=== PATIENT | male | born 1960 | race Caucasian/White ===

== ENCOUNTER 2021-10-22 18:42 | Observation (INO) | payer MEDICARE, OTHER ==
[2021-10-22 19:19] LABS: BASOPHILS % (AUTO) 0.6 %; EOSINOPHILS # (AUTO) 0.3 10^3/uL (0.0-0.7); HCT - HEMATOCRIT 44.7 % (42.0-52.0); HGB - HEMOGLOBIN 15.2 g/dL (14.0-18.0); LYMPHOCYTES # (AUTO) 1.8 10^3/uL (1.5-3.5); LYMPHOCYTES % (AUTO) 27.5 %; MEAN CORPUSCULAR HEMOGLOBIN 30.7 pg (27.0-31.0); MEAN CORPUSCULAR VOLUME 90.3 fL (80.0-94.0); MEAN PLATELET VOLUME 9.3 fL (7.4-11.4); MONOCYTES # (AUTO) 0.4 10^3/uL (0.0-1.0); MONOCYTES % (AUTO) 5.8 %; NEUTROPHILS # (AUTO) 4.1 10^3/uL (1.5-6.6); NEUTROPHILS % (AUTO) 61.9 %; PLT - PLATELET COUNT 190 10^3/uL (130-450); RED BLOOD COUNT 4.95 10^6/uL (4.70-6.10); RED CELL DISTRIBUTION WIDTH 13.1 % (12.0-15.0); WHITE BLOOD COUNT 6.6 x10^3/uL (4.8-10.8)
[2021-10-22 19:28] LABS: ALBUMIN 4.3 g/dL (3.2-5.5); ALBUMIN/GLOBULIN RATIO 1.4 (1.0-2.2); BILIRUBIN,TOTAL 0.4 mg/dL (0.2-1.0); CALCIUM 8.9 mg/dL (8.5-10.3); CREATININE 0.9 mg/dL (0.6-1.2); POTASSIUM 4.1 mmol/L (3.5-5.0); TOTAL PROTEIN 7.3 g/dL (6.7-8.2)
--- NOTE | 2021-10-22 19:59 | XRAY Report ---
PROCEDURE: Chest 1 View X-Ray INDICATIONS: Chest Pain TECHNIQUE: One view of the chest was acquired. COMPARISON: None. FINDINGS: Surgical changes and devices: None. Lungs and pleura: No pleural effusions or pneumothorax. Lungs are clear. Mediastinum: Mediastinal contours appear normal. Heart size is normal. Bones and chest wall: No suspicious bony lesions. Overlying soft tissues appear unremarkable. IMPRESSION: Chest without acute cardiopulmonary abnormalities. No focal airspace disease. Reviewed by: Lizandro Bloom MD on 10/22/2021 6:58 PM [facility] Approved by: Lizandro Bloom MD on 10/22/2021 6:58 PM [facility] Station ID: [id number]
--- NOTE | 2021-10-22 22:03 | ED Physician Documentation ---
History of Present Illness - Stated complaint Stated Complaint: DIZZY,CONFUSED - Chief complaint Chief Complaint: Neuro - History obtained from History obtained from: Patient - Additonal information Additional information: 61-year-old man with past medical history of Ekqfiap-Lyjdx-Twxdi, restless leg syndrome on pramipexole, no other medications, presents with a 5 to 10-minute event 2 days ago occurring at work of lightheadedness and confusion followed by another episode at home. (See MDM for collateral information from ). Patient states that he had shortness of breath, speaking gibberish, and could not think, experiencing palpitations. He now feels completely better. He tried to get into see his primary doctor but was told he can get an appointment for 6 to 8 weeks and was told to come to the emergency department. Of note, patient has had an orthostatic episode a couple years ago when he stood suddenly from bed and hit his head but had a negative work-up at that time. denies chest pain, soa, fever, fnd at present. nonsmoker. denies FH MN, stroke. Review of Systems Ten Systems: 10 systems reviewed and negative Constitutional: denies: Fever, Chills Cardiac: reports: Palpitations. denies: Chest pain / pressure Neurologic: reports: Confused, Other (dizziness) PD PAST MEDICAL HISTORY - Allergies Allergies/Adverse Reactions: Allergies Allergy/AdvReac Type Severity Reaction Status Date / Time No Known Drug Allergies Allergy Verified 10/22/21 19:00 PD ED PE NORMAL - Vitals Vital signs reviewed: Yes - General General: Alert and oriented X 3, No acute distress, Well developed/nourished - HEENT HEENT: Atraumatic, PERRL, EOMI - Neck Neck: Supple, no meningeal sign - Cardiac Cardiac: RRR - Respiratory Respiratory: No respiratory distress, Clear bilaterally - Abdomen Abdomen: Non tender, Non distended - Back Back: No CVA TTP - Derm Derm: Normal color, Warm and dry - Extremities Extremities: No deformity - Neuro Neuro: Alert and oriented X 3, 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, No motor deficit, No sensory deficit, Normal speech Eye Opening: Spontaneous Motor: Obeys Commands Verbal: Oriented GCS Score: 15 - Psych Psych: Normal mood, Normal affect Results - Vitals Vitals: Vital Signs - 24 hr 10/22/21 10/22/21 10/22/21 18:52 21:00 22:14 Temperature 36.3 C L Heart Rate 62 56 L Heart Rate [ 56 L Sitting] Heart Rate [ 65 Standing] Heart Rate [ 50 L Supine] Respiratory 18 18 Rate Blood Pressure 140/79 H 124/83 H Blood Pressure 118/84 H [Sitting] Blood Pressure 120/92 H [Standing] Blood Pressure 129/75 [Supine] O2 Saturation 98 97 Oxygen O2 Source Room air - Labs Labs: Laboratory Tests 10/22/21 10/22/21 10/22/21 19:11 19:11 19:11 WBC 6.6 RBC 4.95 Hgb 15.2 Hct 44.7 MCV 90.3 MCH 30.7 MCHC 34.0 RDW 13.1 Plt Count 190 MPV 9.3 Neut # (Auto) 4.1 Lymph # (Auto) 1.8 [place] # (Auto) 0.4 Eos # (Auto) 0.3 Baso # (Auto) 0.0 Absolute Nucleated RBC 0.00 Nucleated RBC % 0.0 Sodium 137 Potassium 4.1 Chloride 104 Carbon Dioxide 25 Anion Gap 8.0 BUN 19 Creatinine 0.9 Estimated GFR (MDRD) 86 L Glucose 111 H Calcium 8.9 Total Bilirubin 0.4 AST 21 ALT 22 Alkaline Phosphatase 72 Troponin I High Sens 5.6 Total Protein 7.3 Albumin 4.3 Globulin 3.0 Albumin/Globulin Ratio 1.4 Lipase 32 10/22/21 21:47 WBC RBC Hgb Hct MCV MCH MCHC RDW Plt Count MPV Neut # (Auto) Lymph # (Auto) [place] # (Auto) Eos # (Auto) Baso # (Auto) Absolute Nucleated RBC Nucleated RBC % Sodium Potassium Chloride Carbon Dioxide Anion Gap BUN Creatinine Estimated GFR (MDRD) Glucose Calcium Total Bilirubin AST ALT Alkaline Phosphatase Troponin I High Sens 4.5 Total Protein Albumin Globulin Albumin/Globulin Ratio Lipase PD MEDICAL DECISION MAKING - ED course ED course: d/w of patient - episode happened the night before last and she called his clinic's primary provider and they couldn't get him in for 6-8 weeks and said to come to the ED. He came home from work and was sitting on the couch with her and he turned to talk to her and was speaking in gibberish with neologisms (made up words) and was making "mixed up word salad". He then stopped and said "what did you say?" about four times. Episode lasted about 5-10 minutes. He also told her he had an episode at work where he got lightheaded and had trouble catching his breath. A couple years ago he did pass out when he stood suddenly from bed but had a negative workup. CTA head/neck negative. patient to be placed in observation for MRI and then outpatient neuro f/u and echo. Departure - Departure Disposition: ED Place in Observation Clinical Impression: Dizziness, Confusion, Aphasia Condition: Stable
[2021-10-22] MEDS ORDERED: SODIUM CHLORIDE 0.9% 1,000 ML IV STA (22:11)
[2021-10-22] MEDS ORDERED: IOVERSOL 320 100 ML VIAL IVP ONE ×2 (22:19→23:23)
--- NOTE | 2021-10-22 23:41 | CT Report ---
PROCEDURE: ANGIO HEAD W/WO INDICATIONS: confusion, "word salad' 2 nights ago CONTRAST: IV CONTRAST: Optiray 320 ml: 80 PO CONTRAST: *NO PO CONTRAST TECHNIQUE: Precontrast 4.5 mm thick angled axial sections acquired from the foramen magnum to the vertex. Afte r the administration of intravenous contrast, 1 mm thick sections acquired through the [place] of [place] is. Postcontrast 4.5 mm thick sections then re-acquired from the foramen magnum to the vertex. 3-di mensional fzydlox-uhhofjxwq-jvobogtuhu (MIP) and/or volume rendering reformats were acquired of the c entral intracranial vasculature. For radiation dose reduction, the following was used: automated ex posure control, adjustment of mA and/or kV according to patient size. COMPARISON: None FINDINGS: Image quality: Excellent. Anterior circulation: Mild calcific stenosis of the cavernous segments of the bilateral internal car otid arteries. Intracranial internal carotid arteries are otherwise normal in size and flow. The tayo w within the paired anterior cerebral arteries is normal and symmetric. The flow within the middle c erebral arteries is normal and symmetric. The anterior communicating artery is seen. No aneurysms a re seen. Posterior circulation: Visualized portions of the vertebral arteries demonstrate normal caliber, and join to form a normal appearing basilar artery. Flow within the posterior cerebral arteries is norm al and symmetric. No aneurysms are seen. CSF spaces: Ventricles are normal in size and shape. Basal cisterns are patent. No extra-axial flu id collections. Brain: No midline shift. No intracranial bleeds or masses. Alvarez-white matter interface appears int act. Skull and face: Calvarium and facial bones appear intact, without suspicious lesions. Sinuses: Visualized sinuses and mastoids are clear. IMPRESSION: No acute process involving the arterial structures of the head. Reviewed by: Irina Park MD on 10/22/2021 11:41 PM PST Approved by: Irina Park MD on 10/22/2021 11:41 PM PST Station ID: [id number]
--- NOTE | 2021-10-22 23:43 | CT Report ---
PROCEDURE: ANGIO NECK W INDICATIONS: confusion, "word salad" 2 nights ago CONTRAST: IV CONTRAST: Optiray 320 ml: 80 PO CONTRAST: *NO PO CONTRAST TECHNIQUE: After the administration of intravenous contrast, 1.5 mm axial sections acquired from the aortic arch to the [place] of [place]. Coronal 3-D maximum intensity projection (MIP) and/or volume rendering ref ormats were then performed. For radiation dose reduction, the following was used: automated exposur e control, adjustment of mA and/or kV according to patient size. COMPARISON: None. FINDINGS: Image quality: Excellent. Carotid system: The great vessels demonstrate a conventional anatomy as they arise from the aortic a rch. The origins of the common carotid arteries appear patent. The common carotid arteries demonstr ate normal calibers and courses. The bifurcation regions appear normal bilaterally. The internal ca rotid arteries demonstrate normal caliber and course. Posterior circulation: The right vertebral artery origin is patent. Left proximal vertebral arteries not well seen secondary to venous overlap. The more superior portions of the vertebral arteries demo nstrate normal course and caliber. They join to form a normal appearing basilar artery. Soft tissues: Visualized neck soft tissues demonstrate no suspicious abnormalities. The thyroid is normal in size and there are no incidental findings. Bones: No suspicious bony lesions. Visualized cervical spine appears normally aligned. IMPRESSION: 1. Suboptimal visualization of the proximal left vertebral artery secondary to venous overlap. 2. Otherwise negative CT angiography of the neck. The estimate of stenosis included in the report of the imaging study was calculated using the NASCET method CLINICAL RECOMMENDATION STATEMENTS: In patients <35 years with an ITN detected on CT, MRI, or extrathyroidal ultrasound, the Committee re commends further evaluation with dedicated thyroid ultrasound if the nodule is "e1 cm and has no susp icious imaging features, and if the patient has normal life expectancy. In patients "e35 years with an ITN detected on CT, MRI, or extrathyroidal ultrasound, the Committee r ecommends further evaluation with dedicated thyroid ultrasound if the nodule is "e1.5 cm and has no s uspicious imaging features, and if the patient has normal life expectancy. (ACR, 2014) Reviewed by: Irina Park MD on 10/22/2021 11:43 PM PST Approved by: Irina Park MD on 10/22/2021 11:43 PM PST Station ID: [id number]
[2021-10-22] MEDS ORDERED: ONDANSETRON ODT 4 MG TABLET TL PRN (23:55)
[2021-10-22] MEDS ORDERED: SODIUM CHLORIDE FLUSH 0.9% 10 ML SYRINGE IVP PRN (23:55)
[2021-10-22] MEDS ORDERED: ONDANSETRON 4 MG/2 ML VIAL IVP PRN (23:55)
[2021-10-22] MEDS ORDERED: ACETAMINOPHEN 325 MG TABLET PO PRN (23:55)
--- NOTE | 2021-10-22 23:55 | HISTORY & PHYSICAL EXAMINATION ---
Chief Complaint - Chief Complaint Chief Complaint: Disorientation and difficulty speaking History of Present Illness - Admitted From Admitted From:: Home - History Obtained From Records Reviewed: [facility] History obtained from: Patient, GISSEL Goldsmith, - History of Present Illness HPI Comment/Other: This is a 61-year-old male with a past medical history significant for restless leg syndrome who presents today due to an episode about 2 days ago where he had confusion and difficulty speaking. He states he has had about 20 of these episodes over the past 3 to 4 years. He will occasionally have 2-3 in 1 day and then will go months without having an episode. He states about 2 days ago, he had an episode at work where he felt disoriented, dizzy. He was sitting at his desk when it occurred. The episode lasted 5 to 10 minutes and resolved on its own. He reported no focal deficits or headache during that time. He drove home and later that evening while sitting on the couch with his , he had another episode which was similar to the one earlier on in the day. He states he felt like his heart was racing during this episode as well. He tried speaking to his and he noticed that his speech made no sense in the words were not coming out correctly. He states the episodes usually occur when he is by himself so he is not sure if his speech has previously been slurred or not. The episode once again resolved within 10 minutes. He states he does have a new job for the past 3 to 4 years and he has not always had a good appetite. During his last 2 episodes, he had a small snack at around 1 PM prior to the first episode occurring at 3 PM. The episode resolved without any consumption of food. Later on that evening, the episode occurred prior to dinner but once again resolved on its own. He believes he may have had some diaphoresis with these episodes. He denies a prior history of stroke, TIA, diabetes, seizures. He is on Mirapex for restless leg syndrome which was started about 9 months ago. He also began to smoke marijuana every night to help with sleep about 9 months ago. Denies any alcohol use. He came to the ER today because he could not get expedited follow- up on an outpatient basis. History - Past Medical History Neuro: reports: Other (Restless leg syndrome) - Family & Social History Family History Comment/Other: His father had a history of lymphoma and his mother had a history of breast cancer. He believes she may have from Covid she about 1 year ago. Living arrangement: At home Living Situation: With spouse/s.o. 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 He does not smoke and rarely drinks alcohol. He has been smoking marijuana each night for the past 9 months. Meds/Allgy - Home Medications Home Medications: Ambulatory Orders Medication Instructions Recorded Confirmed Pramipexole Di-HCl [Mirapex] 1.5 mg PO DAILY 10/23/21 10/23/21 - Allergies Allergies/Adverse Reactions: Allergies Allergy/AdvReac Type Severity Reaction Status Date / Time No Known Drug Allergies Allergy Verified 10/22/21 19:00 Review of Systems - Constitutional Constitutional: denies: Fatigue, Fever, Chills - Eyes Eyes: reports: Corrective lenses. denies: Blurred vision, Vision loss - Cardiovascular Cariovascular: reports: Palpitations, Lightheadedness. denies: Chest pain, Exertional dyspnea, Decr. exercise tolerance - Respiratory Respiratory: denies: SOB at rest, SOB with exertion - Gastrointestinal Gastrointestinal: denies: Abdominal pain, Nausea, Vomiting - Genitourinary Genitourinary: denies: Dysuria, Frequency, Urgency, Hematuria - Musculoskeletal Musculoskeletal: denies: Limited range of motion, Muscle weakness - Integumentary Integumentary: denies: Rash - Neurological Neurological: reports: Dizziness, Slurred speech. denies: General weakness, Focal weakness, Headache, Numbness, Memory problems - All Other Systems All Other Systems: reports: Reviewed and negative Prior Level of Functionality: He is independent with his ADL's. Exam - Vital Signs Reviewed Vital Signs: Yes Vital Signs: Vital Signs x48h Temp Pulse Pulse Pulse Pulse Resp BP 10/22/21 22:14 56 L 65 50 L 10/22/21 21:00 56 L 18 124/83 H 10/22/21 18:52 36.3 C L 62 18 140/79 H BP BP BP Pulse Ox 10/22/21 22:14 118/84 H 120/92 H 129/75 10/22/21 21:00 97 10/22/21 18:52 98 - Physical Exam General Appearance: positive: No acute distress, Alert Eyes Bilateral: positive: Normal inspection, Conjunctivae nml ENT: positive: ENT inspection nml Neck: positive: Nml inspection Respiratory: positive: No respiratory distress. negative: Wheezes, Rales Cardiovascular: positive: Regular rate & rhythm, No murmur. negative: Tachycardia Abdomen: positive: Non-tender, No distention. negative: Tenderness Skin: positive: Warm, Dry Extremities: positive: Full ROM, No pedal edema Neurologic/Psychiatric: positive: Oriented x3, CN's nml (2-12), Motor nml, Sensation nml. negative: Disoriented to person, Disoriented to place, Disoriented to time, Sensory loss, Facial droop, Slurred/abnml speech Conclusion/Plan - Problem List (1) Aphasia Conclusion/Plan: Given the frequent episodes over the past 3 to 4 years, I feel that this is less likely to be a stroke or TIA but we will need to rule this out. I suspect his aphasia may potentially be related to hypoglycemia given the frequent episodes although this may potentially also be atypical TIAs. This could also potentially be due to seizures although this is felt to be less likely. Imaging has been unremarkable including CTA of the head and neck. Given he cannot obtain an expedited outpatient follow-up, we will place him in observation for further work-up. We will start him on aspirin and Lipitor empirically. Given this is considered a low risk TIA based off of the ABCD squared score, we will use aspirin monotherapy instead of adding Plavix. Will order MRI for the morning. Have also ordered for an echocardiogram. Monitor on telemetry. We will also check an A1c because if this is low normal, this could suggest episodes of hypo glycemia. We will check a TSH. We will monitor his blood glucose with meals. If work-up during this hospitalization is unremarkable, we may need to consider sending home with a glucometer so that he can check his blood sugar during these episodes. (2) Restless leg syndrome Conclusion/Plan: We will continue his home Mirapex. - Lab Results Lab results reviewed: Yes Fish Bones: 10/22/21 19:11 10/22/21 19:11 - Diagnostic Imaging Results Diagnostic Imaging Results: positive: Final report reviewed Core Measures - Issues Hospital Issues and Management Plan: 61-year-old male presents with 2 episodes of [address] in observation for MRI, echo, telemetry. - DVT/VTE - Prophylaxis VTE/DVT Device ordered at admit?: Yes
[2021-10-23 00:13] LABS: B. PARAPERTUSSIS- RESP PCR PAN NOT DETECTED; B. PERTUSSIS- RESP PCR PANEL NOT DETECTED; C. PNEUMONIAE- RESP PCR PANEL NOT DETECTED; CORONAVIRUS 229E-RESP PCR NOT DETECTED; CORONAVIRUS HKU1-RESP PCR NOT DETECTED; CORONAVIRUS NL63-RESP PCR NOT DETECTED; CORONAVIRUS OC43-RESP PCR NOT DETECTED; HUMAN METAPNEUMOVIRUS NOT DETECTED; INFLUENZA A- RESP PCR PANEL NOT DETECTED; INFLUENZA B - RESP PCR PANEL NOT DETECTED; M. PNEUMONIAE- RESP PCR PANEL NOT DETECTED; PARAINFLUENZA VIRUS 1 NOT DETECTED; PARAINFLUENZA VIRUS 2 NOT DETECTED; PARAINFLUENZA VIRUS 3 NOT DETECTED; PARAINFLUENZA VIRUS 4 NOT DETECTED; RHINOVIRUS/ENTEROVIRUS NOT DETECTED; RSV- RESP PCR PANEL NOT DETECTED; SARS-CoV-2 -RESP PCR PANEL NOT DETECTED
[2021-10-23] MEDS: SODIUM CHLORIDE FLUSH 0.9% 10 ML SYRINGE IVP SCH ×2 (01:06→08:17)
[2021-10-23 05:41] LABS: BASOPHILS % (AUTO) 0.5 %; EOSINOPHILS # (AUTO) 0.3 10^3/uL (0.0-0.7); EOSINOPHILS % (AUTO) 4.8 %; HCT - HEMATOCRIT 42.7 % (42.0-52.0); HGB - HEMOGLOBIN 14.5 g/dL (14.0-18.0); LYMPHOCYTES # (AUTO) 1.5 10^3/uL (1.5-3.5); LYMPHOCYTES % (AUTO) 25.8 %; MEAN CORPUSCULAR HEMOGLOBIN 30.6 pg (27.0-31.0); MEAN CORPUSCULAR VOLUME 90.1 fL (80.0-94.0); MEAN PLATELET VOLUME 9.2 fL (7.4-11.4); MONOCYTES # (AUTO) 0.3 10^3/uL (0.0-1.0); MONOCYTES % (AUTO) 5.7 %; NEUTROPHILS # (AUTO) 3.6 10^3/uL (1.5-6.6); PLT - PLATELET COUNT 171 10^3/uL (130-450); RED BLOOD COUNT 4.74 10^6/uL (4.70-6.10); RED CELL DISTRIBUTION WIDTH 13.2 % (12.0-15.0); WHITE BLOOD COUNT 5.6 x10^3/uL (4.8-10.8)
[2021-10-23 05:57] LABS: BUN - BLOOD UREA NITROGEN 16 mg/dL (6-20); CALCIUM 8.5 mg/dL (8.5-10.3); CARBON DIOXIDE - CO2 25 mmol/L (21-32); CHLORIDE 106 mmol/L (101-111); CHOL/HDL RATIO 4.6 (<5.0); CHOLESTEROL 182 mg/dL; CREATININE 0.8 mg/dL (0.6-1.2); GFR - MDRD 98 (>89); GLUCOSE 117 mg/dL (70-100); HDL CHOLESTEROL 40 mg/dL; LDL CHOLESTEROL,CALCULATED 125 mg/dL; LDL/HDL RATIO 3.1 (<3.6); POTASSIUM 3.7 mmol/L (3.5-5.0); SODIUM 140 mmol/L (135-145); TRIGLYCERIDES 87 mg/dL; VLDL CHOLESTEROL 17 mg/dL
[2021-10-23] MEDS ORDERED: ASPIRIN CHEW 81 MG TABLET PO SCH (09:00)
[2021-10-23 11:28] LABS: ESTIMATED AVERAGE GLUCOSE 100 mg/dL (70-100); HEMOGLOBIN A1c% 5.1 % (4.27-6.07)
--- NOTE | 2021-10-23 12:55 | MRI Report ---
PROCEDURE: Brain W/O INDICATIONS: Neuro deficit. Resolved. TECHNIQUE: Noncontrast axial T1 spin echo, axial T2 fast spin echo, sagittal and axial FLAIR, coronal T2 fast sp in echo, axial gradient echo, axial diffusion and ADC through the brain. COMPARISON: CTA 10/22/2021. FINDINGS: Image quality: Excellent. CSF Spaces: Basal cisterns are patent. No extra-axial fluid collections. Ventricles are normal in size and shape. Brain: No intracranial masses or hemorrhage. Alvarez/white matter interface is normal. Brainstem appe ars normal. Diffusion-weighted images demonstrate no acute ischemic insult. No chronic ischemic ins ults. Normal intravascular flow voids are present. Skull and face: Calvarium has normal marrow signal. Orbits appear normal. Sinuses: Mucosal thickening is seen within the ethmoid air cells. The remaining visualized paranasal sinuses and mastoid air cells are clear. IMPRESSION: No acute intracranial hemorrhage or recent infarct. Reviewed by: Tony Jurado MD on 10/23/2021 12:53 PM PST Approved by: Tony Jurado MD on 10/23/2021 12:53 PM PST Station ID: [id number]
--- NOTE | 2021-10-23 14:58 | Discharge Plan ---
Discharge Plan Problem Reviewed?: Yes Disposition: Home, Self Care Condition: Stable Prescriptions: Blood-Glucose Meter [Glucometer] 1 each MC TID PRN #1 each PRN Reason: hypoglycemia Blood Sugar Diagnostic [Glucometer Strips] 1 each MC TID PRN #50 strip PRN Reason: hypoglycemia Lancets 1 each MC TID PRN #50 each PRN Reason: hypoglycemia Diet: Regular Activity Restrictions: Activity as Tolerated Shower Restrictions: No (fall precaution) Instruction Topics: TIA Health Concerns: TIA/aphasia Plan of Treatment: Your aphasia is resolved. All your test including MRI of brain, CTA of head and neck, ECHO are unremarkable. You are prescribed Glucometer, Lancets and strips to check your glucose level as needed. You may keep taking enough nutrition and keeping normal meal, followup with your PCP and followup with neurologist as out-pt. Care Goals: Stabilization and resolved/improvement of your medical conditions Assessment: Discussed care plan with you, answered your questions, you understood and agreed. Additional Instructions or Follow Up instructions: You may follow-up with your PCP in 2 weeks, and follow-up neurologist as outpatient. Should your symptoms return or worsen, you may present to ER or call 911 for help. No Smoking: If you smoke, Please STOP! Call for help.
--- NOTE | 2021-10-23 15:13 | DISCHARGE SUMMARY ---
Discharge Summary Admit Date: 10/22/21 Discharge Date: 10/23/21 Discharging Provider: Donte See Condition at Discharge: Stable Discharge Disposition: 01 Home, Self Care Discharge Facility Name: home - DIAGNOSES Discharge Diagnoses with Status of Each Condition: (1) Aphasia pt's aphasia is resolved. pt denies other focal neurological deficits. All his test including MRI of brain, CTA of head and neck, ECHO are unremarkable. pt is prescribed Glucometer, Lancets and strips to check his glucose level as needed to find if pt has hypoglycemia as pt report he only ate one time of meal daily. Pt's A1C is 5.1. pt has no hx of diabetes. pt may keep taking enough nutrition and keeping normal meal, followup with his PCP and followup with neurologist as out-pt. (2) Restless leg syndrome stable, pt may continue his home Mirapex. (3)hx of Charcot Sinai Tooth stable, pt may followup with neurologist as out-pt - HPI History of Present Illness: refer from Dr. stark's HPI on 10/22/21 This is a 61-year-old male with a past medical history significant for restless leg syndrome who presents today due to an episode about 2 days ago where he had confusion and difficulty speaking. He states he has had about 20 of these episodes over the past 3 to 4 years. He will occasionally have 2-3 in 1 day and then will go months without having an episode. He states about 2 days ago, he had an episode at work where he felt disoriented, dizzy. He was sitting at his desk when it occurred. The episode lasted 5 to 10 minutes and resolved on its own. He reported no focal deficits or headache during that time. He drove home and later that evening while sitting on the couch with his , he had another episode which was similar to the one earlier on in the day. He states he felt like his heart was racing during this episode as well. He tried speaking to his and he noticed that his speech made no sense in the words were not coming out correctly. He states the episodes usually occur when he is by himself so he is not sure if his speech has previously been slurred or not. The episode once again resolved within 10 minutes. He states he does have a new job for the past 3 to 4 years and he has not always had a good appetite. During his last 2 episodes, he had a small snack at around 1 PM prior to the first episode occurring at 3 PM. The episode resolved without any consumption of food. Later on that evening, the episode occurred prior to dinner but once again resolved on its own. He believes he may have had some diaphoresis with these episodes. He denies a prior history of stroke, TIA, diabetes, seizures. He is on Mirapex for restless leg syndrome which was started about 9 months ago. He also began to smoke marijuana every night to help with sleep about 9 months ago. Denies any alcohol use. He came to the ER today because he could not get expedited follow- up on an outpatient basis. - ALLERGIES Allergies/Adverse Reactions: Allergies Allergy/AdvReac Type Severity Reaction Status Date / Time No Known Drug Allergies Allergy Verified 10/22/21 19:00 - MEDICATIONS Home Medications: Ambulatory Orders Medication Instructions Recorded Confirmed Blood Sugar Diagnostic [Glucometer 1 each MC TID PRN #50 strip 10/23/21 Strips] Blood-Glucose Meter [Glucometer] 1 each MC TID PRN #1 each 10/23/21 Lancets 1 each MC TID PRN #50 each 10/23/21 Pramipexole Di-HCl [Mirapex] 1.5 mg PO DAILY 10/23/21 10/23/21 - PHYSICAL EXAM AT DISCHARGE General Appearance: positive: No acute distress, Alert. negative: Lethargic Eyes Bilateral: positive: Normal inspection, No lid inflammation ENT: positive: ENT inspection nml, No signs of dehydration. negative: Purulent nasal drainage Neck: positive: Nml inspection, Trachea midline. negative: Tracheal deviation Respiratory: positive: Chest non-tender, No respiratory distress, Breath sounds nml. negative: Wheezes Cardiovascular: positive: Regular rate & rhythm, No murmur. negative: Tachycardia, Bradycardia, Systolic murmur, Diastolic murmur Peripheral Pulses: positive: 2+ Abdomen: positive: Non-tender, Nml bowel sounds, No distention. negative: Tenderness Back: positive: Nml inspection Skin: positive: Color nml, Warm, Dry. negative: Cyanosis Extremities: positive: Non-tender, Full ROM, Nml appearance Neurologic/Psychiatric: positive: Oriented x3, Motor nml, Sensation nml. negative: Weakness, Sensory loss, Facial droop, Slurred/abnml speech, Depressed mood/affect - LABS Result Diagrams: 10/23/21 05:23 10/23/21 05:23 - FOLLOW UP Follow Up: Your aphasia is resolved. you have no other focal neurological deficits. All your test including MRI of brain, CTA of head and neck, ECHO are unremarkable. You are prescribed Glucometer, Lancets and strips to check your glucose level as needed. You may keep taking enough nutrition and keeping normal meal, followup with your PCP and followup with neurologist as out-pt. You may follow-up with your PCP in 2 weeks, and follow-up neurologist as outpatient. Should your symptoms return or worsen, you may present to ER or call 911 for help. - TIME SPENT Time Spent in Discharge (Minutes): 30
[2021-10-23 16:26] VITALS: BP 137/75
[2021-10-23] MEDS ORDERED: ATORVASTATIN 40 MG TABLET PO SCH (21:00)
[2021-10-24] MEDS ORDERED: PRAMIPEXOLE 0.25 MG TABLET PO SCH (09:00)
== END 2021-10-23 17:00 | disposition home or self-care (01) ==
LOC: ED 18:42 → MS2 23:55
PROVIDERS: ADMIT Internal Medicine; ATTEND Nurse Practitioner Gerontology
DX: R47.01 Aphasia (principal); G25.81 Restless legs syndrome; G60.0 Hereditary motor and sensory neuropathy; Z20.822 Contact with and (suspected) exposure to COVID-19
CPT/HCPCS: 36415; 70496; 70498; 70551; 71045; 80048; 80053; 80061; 83036; 83690; 84443; 84484; 85025; 87631; 93005; 93306; 96360; 99283; 99285; A9270; G0378; Q9967; 0202U; 83721

== ENCOUNTER 2022-04-22 16:06 | Outpatient (CLI) | payer MEDICARE, OTHER ==
[2022-04-22 23:25] LABS: CHLAMYDIA TRACHOMATIS DNA NEGATIVE (NEGATIVE); NEISSERIA GONORRHOEAE DNA NEGATIVE (NEGATIVE)
[2022-04-23 05:11] LABS: HCV AB <0.1 s/co ratio (0.0-0.9); HIV SCREEN 4TH GENERATION Non Reactive (Non Reactive)
[2022-04-23 07:09] LABS: RPR Non Reactive (Non Reactive)
== END 2022-04-22 16:07 | disposition home or self-care (01) ==
LOC: LAB 16:06
PROVIDERS: ATTEND Registered Nurse
DX: Z20.2 Contact with and (suspected) exposure to infections with a predominantly sexual mode of transmission (principal)
CPT/HCPCS: 36415; 86592; 86694; 86695; 86696; 86803; 87491; 87591; G0475; 81599; 87389; 87661

== ENCOUNTER 2022-05-13 15:38 | Outpatient (CLI) | payer MEDICARE, OTHER ==
[2022-05-13 15:53] LABS: BASOPHILS % (AUTO) 0.7 %; EOSINOPHILS # (AUTO) 0.1 10^3/uL (0.0-0.7); EOSINOPHILS % (AUTO) 1.5 %; HCT - HEMATOCRIT 42.9 % (42.0-52.0); HGB - HEMOGLOBIN 14.4 g/dL (14.0-18.0); LYMPHOCYTES # (AUTO) 1.5 10^3/uL (1.5-3.5); LYMPHOCYTES % (AUTO) 24.4 %; MEAN CORPUSCULAR HEMOGLOBIN 30.8 pg (27.0-31.0); MEAN CORPUSCULAR HGB CONC 33.6 g/dL (32.0-36.0); MEAN CORPUSCULAR VOLUME 91.9 fL (80.0-94.0); MEAN PLATELET VOLUME 9.2 fL (7.4-11.4); MONOCYTES # (AUTO) 0.4 10^3/uL (0.0-1.0); MONOCYTES % (AUTO) 6.2 %; NEUTROPHILS # (AUTO) 4.1 10^3/uL (1.5-6.6); PLT - PLATELET COUNT 173 10^3/uL (130-450); RED BLOOD COUNT 4.67 10^6/uL (4.70-6.10); RED CELL DISTRIBUTION WIDTH 13.4 % (12.0-15.0); WHITE BLOOD COUNT 6.1 x10^3/uL (4.8-10.8)
[2022-05-13 16:14] LABS: ALBUMIN 4.3 g/dL (3.2-5.5); ALBUMIN/GLOBULIN RATIO 1.6 (1.0-2.2); BILIRUBIN,TOTAL 0.5 mg/dL (0.2-1.0); CALCIUM 9.1 mg/dL (8.5-10.3); CREATININE 1.1 mg/dL (0.6-1.2); POTASSIUM 4.4 mmol/L (3.5-5.0)
== END 2022-05-13 15:39 | disposition home or self-care (01) ==
LOC: LAB 15:38
PROVIDERS: ATTEND Physician Assistant Medical
DX: G25.81 Restless legs syndrome (principal); Z79.899 Other long term (current) drug therapy
CPT/HCPCS: 36415; 80053; 82728; 83540; 83735; 84466; 85025

== ENCOUNTER 2023-01-17 09:24 | Emergency (ER) | payer MEDICARE, OTHER ==
[2023-01-17 10:09] VITALS: BP 136/79
--- NOTE | 2023-01-17 10:37 | ED Physician Documentation ---
PD HPI LOWER EXT INJURY - Stated complaint Stated Complaint: LT ANKLE INJURY - Chief complaint Chief Complaint: Ext Problem - History obtained from History obtained from: Patient - History of Present Illness PD HPI LOW EXT INJURY LOCATION: Left, Ankle Type of injury: Fall, Twist Timing - onset: Today (stepped on concrete step unevenly and had inversion of ankle and fall. Pain at lateral ankle.) Improved by: No: Rest Worsened by: Moving, Palpating Associated symptoms: Swelling. No: Weakness, Numbness Similar symptoms before: Has not had sx before Review of Systems Skin: denies: Abrasion (s), Laceration (s) Neurologic: denies: Focal weakness PD PAST MEDICAL HISTORY - Past Medical History Cardiovascular: None Respiratory: None Neuro: Other (Restless leg syndrome) Endocrine/Autoimmune: None GI: None : None Psych: None Musculoskeletal: Other Derm: None - Past Surgical History Past Surgical History: Yes Ortho: Hip replacement HEENT: Other - Present Medications Home Medications: Ambulatory Orders Medication Instructions Recorded Confirmed Blood Sugar Diagnostic [Glucometer 1 each MC TID PRN #50 strip 10/23/21 Strips] Blood-Glucose Meter [Glucometer] 1 each MC TID PRN #1 each 10/23/21 Lancets 1 each MC TID PRN #50 each 10/23/21 Pramipexole Di-HCl [Mirapex] 1.5 mg PO DAILY 10/23/21 10/23/21 - Allergies Allergies/Adverse Reactions: Allergies Allergy/AdvReac Type Severity Reaction Status Date / Time No Known Drug Allergies Allergy Verified 10/22/21 19:00 - Social History Does the pt smoke?: No Smoking Status: Never smoker Does the pt drink ETOH?: Yes Does the pt have substance abuse?: No - Immunizations Immunizations are current?: Yes - POLST Patient has POLST: No PD ED PE NORMAL - Vitals Vital signs reviewed: Yes - General General: Alert and oriented X 3, No acute distress, Well developed/nourished - Derm Derm: Normal color, Warm and dry - Extremities Extremities: Other (left lateral ankle with swelling and tenderness. No gross deformity nor laxity of ligaments. Achilles firm and intact. Normal color and cap refill in toes. ) - Neuro Neuro: Alert and oriented X 3, No motor deficit, No sensory deficit Results - Vitals Vitals: Oxygen O2 Source Room air PD Medical Decision Making - ED course Complexity details: reviewed results (ankle xray without fracture. Mortis width normal. ), considered differential, d/w patient Departure - Departure Disposition: 01 Home, Self Care Clinical Impression: Sprain of lateral ligament of ankle joint Condition: Stable Record reviewed to determine appropriate education?: Yes Instructions: ED Sprain Ankle Comments: Your x-ray appears normal to me without any signs of fractures. The radiology report has the same opinion. Obviously there is a lot of swelling and pain there so good sprain and there may be some partial tearing of some of the ligament fibers. This can take several weeks or so for healing. The initial worst pain will be the swelling and acute injury. That should improve over a few days and then be moderately sore for a week to week and a half. It can take several weeks for good healing. Ice elevate and rest the ankle often to reduce swelling. Crutches as needed for nonweightbearing. Progress weightbearing as tolerated but continue with the ankle brace when up and around for likely 2 to 3 weeks until well-healed. Tylenol ibuprofen if needed for pains. Follow-up with your primary if not improving in the above time course. Discharge Date/Time: 01/17/23 11:42
--- NOTE | 2023-01-17 10:48 | XRAY Report ---
PROCEDURE: Ankle 3 View LT INDICATIONS: Trauma TECHNIQUE: 3 views of the ankle were acquired. COMPARISON: None. FINDINGS: Bones: No fractures or dislocations. Ankle mortise is normally aligned. No suspicious bony lesions . Soft tissues: Small tibiotalar joint effusion. Achilles tendon appears normal. Anterior and latera l periarticular soft tissue swelling. IMPRESSION: 1. No visible fracture. 2. Joint effusion and moderate anterior and lateral soft tissue swelling suggesting sprain. Reviewed by: Selena Tracey MD on 01/17/2023 9:47 AM TOM Approved by: Selena Tracey MD on 01/17/2023 9:47 AM TOM Station ID: [id number]
--- NOTE | 2023-01-17 10:51 | XRAY Report ---
PROCEDURE: Foot 3 View LT INDICATIONS: Trauma TECHNIQUE: 3 views of the foot were acquired. COMPARISON: None. FINDINGS: Bones: No fractures or dislocations. Mild degenerative joint space loss in the digits. No suspicious bony lesions. Soft tissues: No suspicious soft tissue calcifications or masses. IMPRESSION: Intact left foot. Reviewed by: Selena Tracey MD on 01/17/2023 9:49 AM TOM Approved by: Selena Tracey MD on 01/17/2023 9:49 AM TOM Station ID: [id number]
[2023-01-17] MEDS ORDERED: IBUPROFEN 800 MG TABLET PO STA (11:01)
== END 2023-01-17 11:42 | disposition home or self-care (01) ==
LOC: ED 09:24
DX: S93.402A Sprain of unspecified ligament of left ankle, initial encounter (principal); X50.1XXA Overexertion from prolonged static or awkward postures, initial encounter
CPT/HCPCS: 73610; 73630; 99283; A9270